=== PATIENT | male | born 1965 | race Caucasian/White ===

== ENCOUNTER 2016-08-19 06:47 | Emergency (ER) | payer SELFPAY ==
[~2016-08-19] VITALS: Ht 170.2 cm; Wt 72.2 kg
[2016-08-19 06:51] VITALS: BP 134/85
== END 2016-08-19 09:02 | disposition home or self-care (01) ==
LOC: ED 07:45
DX: S90.31XA Contusion of right foot, initial encounter (principal); F10.129 Alcohol abuse with intoxication, unspecified; X58.XXXA Exposure to other specified factors, initial encounter; Y93.89 Activity, other specified; Y92.89 Other specified places as the place of occurrence of the external cause; Y99.9 Unspecified external cause status
CPT/HCPCS: 99284